=== PATIENT | female | born 1980 | race Caucasian/White ===

== ENCOUNTER 2018-01-12 17:12 | Emergency (ER) | payer MEDICAID ==
[~2018-01-12] VITALS: Ht 165.1 cm; Wt 72.7 kg
[2018-01-12 18:08] VITALS: Ht 165.1 cm; Wt 72.7 kg
[2018-01-12] MEDS ORDERED: ATIVAN1 MG PO (18:11)
[2018-01-12] MEDS ORDERED: EFFEXOR XR150 MG PO (18:11)
[2018-01-12] MEDS ORDERED: NEURONTIN 300300 MG PO (18:11)
[2018-01-12] MEDS ORDERED: TOPAMAX50 MG PO (18:11)
[2018-01-12] MEDS ORDERED: MINIPRESS1 MG PO (18:12)
[2018-01-12] MEDS ORDERED: IMITREX100 MG PO (18:12)
[2018-01-12] MEDS ORDERED: OMEPRAZOLE20 M1 PO (18:12)
[2018-01-12] MEDS ORDERED: CYCLOBENZAPRINE10 MG PO (18:13)
[2018-01-12 19:29] LABS: BASOPHILS 0.2 % (0-2); EOSINOPHILS 3.6 % (0-7); HEMATOCRIT 38.6 % (36.0-48.0); HEMOGLOBIN 13.4 g/dL (12-16); IMMATURE GRANULOCYTES 0.2 % (0-5); LYMPHOCYTES 31.7 % (15-50); MCH 32.1 pg (26.0-34.0); MCHC 34.7 g/dL (31.0-37.0); MCV 92.3 fL (80.0-100.0); MEAN PLATELET VOLUME 8.8 fL (7.4-10.4); MONOCYTES 3.4 % (2-11); NEUTROPHILS 60.9 % (40-80); PLATELET COUNT 359 10x3/uL (130-400); RBC 4.18 10x6/uL (4.00-5.40); RDW 12.9 % (11.5-14.5); WBC 10.5 10x3/uL (4.8-10.8)
[2018-01-12 19:52] LABS: ALBUMIN 3.8 g/dL (3.4-5.0); ALKALINE PHOSPHATASE 64 U/L (46-116); ALT (SGPT) 21 U/L (10-68); AMYLASE - SERUM 38 U/L (25-115); BILIRUBIN - TOTAL 0.28 mg/dL (0.2-1.3); CALC OSMOLALITY 277 mosm/kg (275-300); CALCIUM 8.9 mg/dL (8.5-10.1); CHLORIDE - SERUM 107 mmol/L (98-107); CREATININE - SERUM 0.8 mg/dL (0.6-1.3); GLUCOSE 104 mg/dL (74-106); LIPASE 84 U/L (73-393); POTASSIUM - SERUM 3.8 mmol/L (3.5-5.1); PROTEIN - SERUM 7.3 g/dL (6.4-8.2); SODIUM 140 mmol/L (136-145); UREA NITROGEN 11 mg/dL (7-18); eGFR NON AFRICAN AMERICAN 85 mL/min (90-120)
[2018-01-12] MEDS ORDERED: TYLENOL W/CODEI1 TAB PO (20:18)
[2018-01-13 04:49] VITALS: BP 123/87
== END 2018-01-12 20:51 | disposition home or self-care (01) ==
LOC: D.ER 17:12
PROVIDERS: Family Medicine
DX: M94.0 Chondrocostal junction syndrome [Tietze] (principal); F17.200 Nicotine dependence, unspecified, uncomplicated

== ENCOUNTER → 2018-08-14 11:51 | Outpatient (CLI) | payer MEDICAID ==
[2018-01-12 18:08] VITALS: BMI 26.6
[~2018-08-14 11:51] MED LIST: ATIVAN1 MG PO; CYCLOBENZAPRINE10 MG PO; EFFEXOR XR150 MG PO; IMITREX100 MG PO; MINIPRESS1 MG PO; NEURONTIN 300300 MG PO; OMEPRAZOLE20 M1 PO; TOPAMAX50 MG PO; TYLENOL W/CODEI1 TAB PO
== END | disposition home or self-care (01) ==
LOC: D.OPS 11:51 → D.RAD 13:00
DX: K21.0 Gastro-esophageal reflux disease with esophagitis (principal); Z01.812 Encounter for preprocedural laboratory examination